=== PATIENT | male | born 1965 | race African-American/Black ===

== ENCOUNTER 2021-12-18 19:31 | Emergency (ER) | payer OTHER ==
[~2021-12-18] VITALS: Ht 175.3 cm; Wt 99.8 kg
[2021-12-18] MEDS ORDERED: ASPIRIN325 PO (19:39)
[2021-12-18] MEDS ORDERED: NORVASC5 MG PO (19:39)
[2021-12-18 20:26] LABS: HEMOGLOBIN 14.6 gm/dL (14.0-18.0); MCH 31.1 pg (26.0-34.0); MCHC 34.1 g/dL (28.0-37.0); MCV 91.4 fL (80.0-100.0); MPV 7.6 fl. (7.2-11.1); NUCLEATED RBCS 0 /100WBC; PLATELET COUNT* 263 thou/uL (150-400); RBC 4.71 mil/uL (4.50-6.00); RDW-CV 13.4 % (10.5-14.5); WBC 4.5 thou/uL (4.0-11.0)
[2021-12-18 20:32] LABS: CALCIUM 8.5 mg/dL (8.5-10.1); CREATININE 1.1 mg/dL (0.6-1.3); POTASSIUM 3.9 mmol/L (3.5-5.1)
[2021-12-18 20:39] LABS: APTT 26.9 Seconds (25.0-31.3); PROTIME 10.5 Seconds (9.20-11.50)
[2021-12-18 20:43] LABS: TOTAL BILIRUBIN 0.3 mg/dL (<0.1-1.0); TOTAL PROTEIN 7.8 g/dL (6.4-8.2)
[2021-12-18 21:17] LABS: ABSOLUTE LYMPHOCYTES 1.9 thou/uL (0.8-5.3); ABSOLUTE MONOCYTES 0.5 thou/uL (0.0-1.2); ABSOLUTE NEUTROPHILS 1.6 thou/uL (1.6-8.1)
[2021-12-18 21:18] LABS: ABSOLUTE BASOPHILS 0.2 thou/uL (0.0-0.2); ABSOLUTE EOSINOPHILS 0.4 thou/uL (0.0-0.7); PLATELET ESTIMATE ADEQUATE
[2021-12-18 21:19] LABS: MACROCYTES Occasional
[2021-12-19 00:07] VITALS: BP 134/92
--- NOTE | 2021-12-19 08:16 | EKG ---
[place] [address] ELECTROCARDIOGRAM REPORT Name: GERRI LEIGH Room: [facility]#: [id number] Admission: 12/18/21 Attend Phys: Discharge: 12/19/21 Date of : 69 Date of Service: 12/18/211935 Report #: [id number] THIS REPORT FOR: //name// 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
--- NOTE | 2021-12-19 08:17 | EKG ---
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: [place] : 1965 Requested By: Chrystal Haynes Order Number: [id number] MD: Tonio Castro Measurements Intervals [place] Rate: 73 P: 25 [place]: 188 QRS: -17 QRSD: 102 T: 12 QT: 397 QTc: 438 Interpretive Statements Sinus rhythm Low voltage, precordial leads Left ventricular hypertrophy, by voltage Left axis deviation Compared to ECG 12/18/2021 19:36:07 Low QRS voltage now present Left ventricular hypertrophy now present Sinus arrhythmia no longer present Electronically Signed On 12-19-2021 8:17:20 LOW PRESSURE BOILER TENDER by Tonio Castro [email or web address] <ELECTRONICALLY SIGNED> By: Tonio Castro MD, FACC 12/19/21 0817 44 44 Tonio Castro MD, FACC /EPI
== END 2021-12-19 00:08 | disposition home or self-care (01) ==
LOC: M.ERS 19:31
PROVIDERS: Personal Emergency Response Attendant
DX: R07.89 Other chest pain (principal); R10.13 Epigastric pain; R05.9 Cough, unspecified; M79.601 Pain in right arm; I10 Essential (primary) hypertension; M06.9 Rheumatoid arthritis, unspecified; Z79.899 Other long term (current) drug therapy; Z79.82 Long term (current) use of aspirin; Z91.018 Allergy to other foods